=== PATIENT | male | born 1980 | race Hispanic/Latino ===

== ENCOUNTER 2017-07-25 01:57 | Emergency (ER) | payer OTHER ==
[2017-07-25 02:07] VITALS: O2SAT 99
--- NOTE | 2017-07-25 03:34 | C.PDOC ---
History Of Present Illness 37 year old male presents to the ER with a complaint of insomnia for the past 2 months. Patient states he used to be able to sleep at least 3 hours a night but now sleeps less than 1 hour a night. Patient reports it began when he was being treated for abdominal pain 2 months prior when he was being treated for abdominal pain. Patient had full exam testing done by hospitals in [place] for ? H. Pylori and is currently on antibiotics and PPIs. Patient reports he has been sad at times and notes he quit his job 2 months ago but has not returned since. Denies abdominal pain, suicidal ideation, or homicidal ideation. Time Seen by Provider: 07/25/17 02:14 Chief Complaint (Nursing): Medical Clearance History Per: Patient History/Exam Limitations: no limitations Onset/Duration Of Symptoms: Days Current Symptoms Are (Timing): Still Present Recent travel outside of the [place]: No Past Medical History Reviewed: Historical Data, Nursing Documentation, Vital Signs Vital Signs: Last Vital Signs Temp 98 F 07/25/17 02:05 Pulse 70 07/25/17 02:05 Resp 16 07/25/17 02:05 BP 134/84 07/25/17 02:05 Pulse Ox 99 07/25/17 04:34 - Medical History PMH: No Chronic Diseases Surgical History: No Surg Hx Family History: States: Unknown Family Hx - Social History Hx Alcohol Use: No Hx Substance Use: No - Immunization History Hx Tetanus Toxoid Vaccination: No Hx Influenza Vaccination: No Hx Pneumococcal Vaccination: No Review Of Systems Constitutional: Negative for: Fever, Chills Gastrointestinal: Negative for: Nausea, Vomiting, Abdominal Pain Psych: Positive for: Other (Insomnia) Physical Exam - Physical Exam Appears: Non-toxic, No Acute Distress, Other (Flat affect, Responsive) Skin: Normal Color, Warm, Dry Head: Atraumatic, Normacephalic Eye(s): bilateral: Normal Inspection Oral Mucosa: Moist Chest: Symmetrical, No Tenderness Cardiovascular: Rhythm Regular Respiratory: Normal Breath Sounds, No Rales, No Rhonchi, No Wheezing Gastrointestinal/Abdominal: Soft, No Tenderness Neurological/Psych: Oriented x3, Normal Speech ED Course And Treatment O2 Sat by Pulse Oximetry: 99 (Room air) Pulse Ox Interpretation: Normal Progress Note: Crisis notified. Pt was interviewed by Crisis counselor Herb who discussed the case with psych professor of environmental studies Dr Faulkner who advised that pt can be d/ c to outpatient clinic and recommend pt be given a short course 9 1-2 wk ) of xanax for anxiety/ insomnia Disposition Counseled Patient/Family Regarding: Diagnosis, Need For Followup, Rx Given - Disposition Referrals: Fracisco Faulkner MD [Staff Provider] - [facility], psychiatry [Other] Disposition: HOME/ ROUTINE Disposition Time: 04:32 Condition: STABLE Additional Instructions: Please follow up in [facility] as scheduled on 08/09 Take meds only for anxiety and insomnia Return to ER if worse Prescriptions: ALPRAZolam [Xanax] 0.25 mg PO HS #10 tab Instructions: Insomnia (ED) Forms: [employer] (Belarusian) - Clinical Impression Clinical Impression: Insomnia - PA / LIBRARY TECHNICAL ASSISTANT / Resident Statement MD/DO has reviewed & agrees with the documentation as recorded. - Scribe Statement The provider has reviewed the documentation as recorded by the Scribe Geovanni Stuart All medical record entries made by the Scribe were at my direction and personally dictated by me. I have reviewed the chart and agree that the record accurately reflects my personal performance of the history, physical exam, medical decision making, and the department course for this patient. I have also personally directed, reviewed, and agree with the discharge instructions and disposition.
[2017-07-25 04:45] VITALS: BP 144/84; PULSE 68; RESP 22; TEMP 97.4
== END 2017-07-25 04:39 | disposition home or self-care (01) ==
LOC: C.ER 01:57
DX: G47.00 Insomnia, unspecified (principal)

== ENCOUNTER 2018-01-26 09:05 | Emergency (ER) | payer OTHER ==
[2018-01-26 09:21] VITALS: TEMP 98.2; O2SAT 100; BMI 29.6
[2018-01-26] MEDS ORDERED: Lidocaine 136 MG in Sodium Chloride 0.9% 100 ML IV ONE (10:39)
[2018-01-26] MEDS ORDERED: Sodium Chloride 0.9% 500 ML IV ONE ×2 (10:39→11:06)
[2018-01-26 10:57] LABS: BASO # 0.1 K/uL (0.0-0.2); EOS # 0.2 K/uL (0.0-0.7); LYMPH # 3.1 K/uL (1.0-4.3); MONO # 0.5 K/uL (0.0-0.8); NEUT # 2.3 K/uL (1.8-7.0); NRBC % 0.1 % (0.0-2.0); RBC 5.4 Mil/uL (4.40-5.90); WHITE BLOOD COUNT 6.2 K/uL (4.8-10.8)
[2018-01-26 10:59] LABS: EOS % 2.9 % (0.0-4.0); HEMOGLOBIN 15.1 g/dL (12.0-18.0); LYMPH % 50.4 % (20.0-40.0); MEAN CELL VOLUME 82.3 fL (80.0-94.0); MEAN CORPUSCULAR HGB CONC 34.1 g/dL (33.0-37.0); MEAN PLATELET VOLUME 8.8 fL (7.2-11.7); MONO % 8.6 % (0.0-10.0); NEUT % 37.1 % (50.0-75.0); RED CELL DISTRIBUTION WIDTH 13.5 % (11.5-14.5)
--- NOTE | 2018-01-26 10:59 | C.PDOC ---
History Of Present Illness 37-year-old male, presents to the emergency department accompanied by family member, with complaints of abdominal pain ongoing for the past several months. Patient is currently taking Protonix, Clarithromycin and Amoxicillin which hasn' t been working, He denies fever, chills, chest pain, shortness of breath, diarrhea, nausea/vomiting or any other associated symptoms. No other complaints at this time. Time Seen by Provider: 01/26/18 09:30 Chief Complaint (Nursing): Abdominal Pain History Per: Patient, Family History/Exam Limitations: no limitations Current Symptoms Are (Timing): Still Present Severity: Moderate Past Medical History Reviewed: Historical Data, Nursing Documentation, Vital Signs Vital Signs: Last Vital Signs Temp 98.2 F 01/26/18 09:14 Pulse 66 01/26/18 11:55 Resp 16 01/26/18 11:55 BP 116/68 01/26/18 11:55 Pulse Ox 100 01/26/18 12:51 Family History: States: No Known Family Hx - Social History Hx Alcohol Use: No Hx Substance Use: No - Immunization History Hx Tetanus Toxoid Vaccination: No Hx Influenza Vaccination: No Hx Pneumococcal Vaccination: No Review Of Systems Except As Marked, All Systems Reviewed And Found Negative. Constitutional: Positive for: Weakness. Negative for: Fever, Chills Cardiovascular: Negative for: Chest Pain Respiratory: Negative for: Shortness of Breath Gastrointestinal: Positive for: Abdominal Pain. Negative for: Nausea, Vomiting , Diarrhea Genitourinary: Negative for: Dysuria, Frequency, Hematuria Musculoskeletal: Negative for: Back Pain Skin: Negative for: Rash Neurological: Negative for: Weakness, Numbness, Headache, Dizziness Physical Exam - Physical Exam Appears: Non-toxic, No Acute Distress Skin: Normal Color, Warm, Dry, No Rash Head: Atraumatic, Normacephalic Eye(s): bilateral: Normal Inspection Nose: Normal Oral Mucosa: Moist Lips: Normal Appearing Throat: No Erythema, No Exudate Neck: Normal ROM, Supple Chest: Symmetrical Cardiovascular: Rhythm Regular, No Friction Rub, No Murmur Respiratory: Normal Breath Sounds, No Accessory Muscle Use Gastrointestinal/Abdominal: Soft, No Tenderness Back: Normal Inspection, No CVA Tenderness Extremity: Normal ROM, No Deformity, No Swelling Neurological/Psych: Oriented x3, Normal Speech, Normal Motor Gait: Steady ED Course And Treatment - Laboratory Results Result Diagrams: 01/26/18 10:52 06/14/18 10:52 O2 Sat by Pulse Oximetry: 100 (RA) Pulse Ox Interpretation: Normal Medical Decision Making Medical Decision Making: Plan: * Bloodwork * US Abdomen * Reglan, Protonix, IVFs, Lidocaine * Reassess and Disposition On re-exam, the patient reports improvement of symptoms. Lungs are CTA, heart is RRR, abdomen is soft, non-tender and tolerating PO well. Follow up with the medical doctor within 1-2 days. return if worsened. Disposition - Disposition Referrals: [facility] [Outside] Disposition: HOME/ ROUTINE Disposition Time: 12:38 Condition: GOOD Additional Instructions: Follow up with the medical doctor/clinic within 1-2 days, Return if worsened. Prescriptions: Famotidine [Pepcid] 20 mg PO BID #20 tab hydrOXYzine HCl [Atarax] 25 mg PO HS PRN #20 tab PRN Reason: Insomnia Polyethylene Glycol 3350 [Miralax] 17 gm PO DAILY PRN #100 ml PRN Reason: Constipation Instructions: Stomach Ache and Stomach Upset Forms: [facility] [employer] (Uzbek), Work Excuse - Clinical Impression Clinical Impression: Dyspepsia, Constipation, Insomnia - Scribe Statement The provider has reviewed the documentation as recorded by the Scribe (Aston Davis) All medical record entries made by the Scribe were at my direction and personally dictated by me. I have reviewed the chart and agree that the record accurately reflects my personal performance of the history, physical exam, medical decision making, and the department course for this patient. I have also personally directed, reviewed, and agree with the discharge instructions and disposition.
[2018-01-26 11:04] LABS: URINE BILIRUBIN NEGATIVE (NEGATIVE); URINE BLOOD NEGATIVE (NEGATIVE); URINE CLARITY Clear (Clear); URINE COLOR Straw (YELLOW); URINE GLUCOSE (UA) NORMAL (Normal); URINE LEUKOCYTE ESTERASE NEG Leu/uL (Negative); URINE PROTEIN NEGATIVE (NEGATIVE); URINE UROBILINOGEN NORMAL mg/dL (0.2-1.0)
[2018-01-26 11:21] LABS: ALB/GLOB RATIO 1.4 (1.0-2.1); ALBUMIN 4.2 g/dL (3.5-5.0); ALT/SGPT 25 U/L (21-72); AST/SGOT 19 U/L (17-59); BLOOD UREA NITROGEN 16 mg/dL (9-20); CALCIUM 9.3 mg/dl (8.6-10.4); GFR AFRICAN-AMERICAN > 60; GFR NON-AFRICAN AMERICAN > 60; LIPASE 87 U/L (23-300)
--- NOTE | 2018-01-26 11:33 | US ---
HISTORY: RUQ abd pain, COMPARISON: None. TECHNIQUE: Sonographic evaluation of the right upper quadrant of the abdomen. FINDINGS: LIVER: Measures 13.6 cm in length. Borderline increased echogenicity of the liver parenchyma may indicate limited hepatic steatosis. No mass. No intrahepatic bile duct dilatation. Normal directional flow with the portal and hepatic veins as imaged. GALLBLADDER: Unremarkable. No gallstones. No sonographic Brown sign. COMMON BILE DUCT: Measures 2.3 mm. No stones. No dilatation. PANCREAS: The tail of the pancreas is obscured by overlying bowel gas with remainder unremarkable. RIGHT KIDNEY: Measures 11.2 cm in length. Normal echogenicity. No calculus, mass, or hydronephrosis. AORTA: No aneurysmal dilatation. IVC: Unremarkable. OTHER FINDINGS: None . IMPRESSION: Borderline hepatic steatosis. Imaging of the liver is otherwise unremarkable. Pancreas tail is obscured by bowel gas with remainder unremarkable appearing. No suspicious biliary tree findings.
[2018-01-26 12:01] VITALS: BP 116/68; PULSE 66; RESP 16
--- NOTE | 2018-01-26 13:49 | RAD ---
PROCEDURE: Radiographs of the chest and abdomen (obstructive series) HISTORY: abd pain COMPARISON: No prior. TECHNIQUE: AP radiograph of the chest, with upright and supine radiographs of the abdomen. FINDINGS: CHEST: Lungs: Clear. Cardiovascular: Normal size heart. No pulmonary vascular congestion. Pleura: No pleural fluid. No pneumothorax. Other findings: None. ABDOMEN AND PELVIS: Bowel: Stool retention.. No evidence of mechanical obstruction. Free air: None. Bones: Unremarkable. Other findings: None. IMPRESSION: Unremarkable radiographs of chest Stool retention. No evidence of mechanical bowel obstruction.
== END 2018-01-26 13:10 | disposition home or self-care (01) ==
LOC: C.ER 09:05
DX: K59.00 Constipation, unspecified (principal); R10.13 Epigastric pain; G47.00 Insomnia, unspecified
CPT/HCPCS: 74022; 76705; 80053; 81001; 83690; 85025; 96361; 96374; 96375; 99285; C9113; J2001; J2765; J7040